=== PATIENT | female | born 1955 | race Caucasian/White ===

== ENCOUNTER 2021-01-06 02:45 | Emergency (ER) | payer BC, MEDICARE ==
[2021-01-06 03:14] VITALS: PULSE 71
[2021-01-06] MEDS ORDERED: Aspirin 81 MG Tab.Chew PO ONE (03:23)
[2021-01-06] MEDS ORDERED: Nitroglycerin 0.4 MG Tab.SL SL ONE ×2 (03:23→03:42)
[2021-01-06 03:28] VITALS: BP 205/81
--- NOTE | 2021-01-06 03:35 | EDM.PDOC ---
ED HPI GENERAL MEDICAL PROBLEM - General Chief Complaint: Chest Pain Stated Complaint: CHEST PAIN, 3RD ROUND OF ANTIBIOTICS Time Seen by Provider: 01/06/21 03:10 Source of Information: Reports: Patient, RN History Limitations: Reports: No Limitations - History of Present Illness INITIAL COMMENTS - FREE TEXT/NARRATIVE: ED with c/o sharp anterior chest pin /10 radiating thru to back, Hx GERD, woke with discomfort, tried Pepcid but didn't help. Remote hx "stress related CT 5 years ago. Pain worse tonight than with prior episode. no nausea or sweating. Notes SOB with exertion over past month. Has been sick with sinus symptoms since , Currently ending 3rd round of antibiotics. Finished course of prednisone. Primary sinus sx, right ethmoid. Scheduled for CT of sinus on Monday. Seeing GI specialist in January. Chest Pain Score (Numeric/FACES): 7 - Related Data Allergies Allergy/AdvReac Type Severity Reaction Status Date / Time bacitracin Allergy Unknown Verified 01/06/21 02:59 bacitracin zinc Allergy Unknown Verified 01/06/21 02:59 [From Neosporin ([id number])] codeine Allergy Unknown Verified 01/06/21 02:59 fluoxetine Allergy Unknown Verified 01/06/21 02:59 neomycin sulfate Allergy Unknown Verified 01/06/21 02:59 [From Neosporin ([id number])] Penicillins Allergy Unknown Verified 01/06/21 02:59 polymyxin B Allergy Unknown Verified 01/06/21 02:59 [From Neosporin ([id number])] environmental allergies Allergy Unknown Uncoded 01/06/21 02:59 Home Meds: Home Meds Albuterol Sulfate [Albuterol Sulfate HFA] 2 puff INH Q8H 01/06/21 [History] Aspirin [Aspirin EC] 81 mg PO DAILY 01/06/21 [History] Benzonatate [Tessalon Perle] 100 mg PO TID 01/06/21 [History] Desvenlafaxine [Desvenlafaxine ER] 100 mg PO DAILY 01/06/21 [History] Doxycycline Hyclate [Vibramycin] 100 mg PO BID 01/06/21 [History] Loratadine/Pseudoephedrine [Claritin-D 24 Hour Tablet] 1 tab PO DAILY 01/06/21 [History] Losartan [Cozaar] 50 mg PO BID 01/06/21 [History] Metoprolol Succinate 50 mg PO DAILY 01/06/21 [History] Mirabegron [Myrbetriq] 50 mg PO DAILY 01/06/21 [History] Montelukast Sodium [Singulair] 10 mg PO BEDTIME 01/06/21 [History] Omeprazole 20 mg PO ACBREAKFAST 01/06/21 [History] metFORMIN HCl [Metformin HCl ER] 1,000 mg PO BIDMEALS 01/06/21 [History] Past Medical History Cardiovascular History: Reports: High Cholesterol, Hypertension, CT Gastrointestinal History: Reports: GERD GALLERY OR [employer] History: Reports: Neurological History: Reports: Migraines, Vertigo Psychiatric History: Reports: Anxiety, Depression - Infectious Disease History Infectious Disease History: Reports: Chicken Pox, Measles, Mumps - Past Surgical History Musculoskeletal Surgical History: Reports: Shoulder Surgery Social & Family History - Tobacco Use Tobacco Use Status *Q: Never Tobacco User Second Hand Smoke Exposure: No - Caffeine Use Caffeine Use: Reports: Coffee - Recreational Drug Use Recreational Drug Use: No ED ROS GENERAL - Review of Systems Review Of Systems: Comprehensive ROS is negative, except as noted in HPI. ED EXAM, GENERAL - Physical Exam Exam: See Below Exam Limited By: No Limitations General Appearance: Alert, Anxious, Mild Distress, Obese Eye Exam: Bilateral Eye: EOMI Ears: Normal External Exam, Hearing Loss (mild) Nose: Normal Inspection Throat/Mouth: Normal Inspection, Normal Voice Head: Atraumatic, Sinus Tenderness (ritght ethmoid) Neck: Normal Inspection Respiratory/Chest: No Respiratory Distress, Lungs Clear, Normal Breath Sounds Cardiovascular: Normal Peripheral Pulses, Regular Rate, Rhythm, Other (rare PVC) GI/Abdominal: Normal Bowel Sounds, Soft, Tender (epigastric). No: Distended, Gu arding Back Exam: Normal Inspection, Full Range of Motion Extremities: Normal Inspection, Normal Range of Motion Neurological: Alert, Oriented, Normal Cognition Psychiatric: Anxious Skin Exam: Warm, Dry, Intact, Normal Color #1 Interpretation EKG Date: 01/06/21 Time: 02:55 Rate (Beats/Min): 68 [place]: Normal P-Wave: Present QRS: Normal ST-T: Normal Comparison: Change From Previous EKG Course - Vital Signs Last Recorded V/S: Last Vital Signs Temp 96.9 F 01/06/21 03:07 Pulse 71 01/06/21 03:07 Resp 17 01/06/21 03:07 BP 205/81 H 01/06/21 03:28 Pulse Ox 96 01/06/21 03:07 - Orders/Labs/Meds Labs: Laboratory Tests 01/06/21 01/06/21 01/06/21 Range/Units 03:42 03:42 03:42 WBC 9.6 (5.0-10.0) 10^3/uL RBC 3.99 L (4.2-5.4) 10^6/uL Hgb 11.0 L (12.0-16.0) g/dL Hct 33.4 L (37.0-47.0) % MCV 83.7 (80-100) fL MCH 27.6 (27.0-34.0) pg MCHC 32.9 L (33.0-35.0) g/dL Plt Count 284 (150-450) 10^3/uL Neut % (Auto) 72.6 (42.2-75.2) % Lymph % (Auto) 20.3 L (20.5-50.1) % [place] % (Auto) 6.9 (2-8) % Eos % (Auto) 0.1 L (1.0-3.0) % Baso % (Auto) 0.1 (0.0-1.0) % PT 11.7 (9.0-12.0) SEC INR 1.2 (0.9-1.2) D-Dimer, Quantitative 3290 H (0-400) ng/mL Sodium 141 (136-145) mmol/L Potassium 4.0 (3.5-5.1) mmol/L Chloride 104 (98-107) mmol/L Carbon Dioxide 26 (21-32) mmol/L Anion Gap 15.0 H (7-13) mEq/L BUN 24 H (7-18) mg/dL Creatinine 1.07 H (0.55-1.02) mg/dL Est Cr Clr Drug Dosing 40.35 mL/min Estimated GFR (MDRD) 51 BUN/Creatinine Ratio 22.4 (No establ ref range) Glucose 140 H (70-99) mg/dL Calcium 8.4 L (8.5-10.1) mg/dL Magnesium 1.4 L (1.8-2.4) mg/dL Total Bilirubin 0.3 (0.2-1.0) mg/dL AST 14 L (15-37) U/L ALT 27 (14-59) U/L Alkaline Phosphatase 59 (46-116) U/L Troponin I 0.195 H* (0.000-0.056) ng/mL B-Natriuretic Peptide 122 H (0-100) pg/ml Total Protein 6.2 L (6.4-8.2) g/dL Albumin 2.8 L (3.4-5.0) g/dL Globulin 3.4 Albumin/Globulin Ratio 0.82 Amylase 29 (25-115) U/L Lipase 79 (73-393) U/L SARS-CoV-2 RNA (SARAH) (NEGATIVE) 01/06/21 Range/Units 04:52 WBC (5.0-10.0) 10^3/uL RBC (4.2-5.4) 10^6/uL Hgb (12.0-16.0) g/dL Hct (37.0-47.0) % MCV (80-100) fL MCH (27.0-34.0) pg MCHC (33.0-35.0) g/dL Plt Count (150-450) 10^3/uL Neut % (Auto) (42.2-75.2) % Lymph % (Auto) (20.5-50.1) % [place] % (Auto) (2-8) % Eos % (Auto) (1.0-3.0) % Baso % (Auto) (0.0-1.0) % PT (9.0-12.0) SEC INR (0.9-1.2) D-Dimer, Quantitative (0-400) ng/mL Sodium (136-145) mmol/L Potassium (3.5-5.1) mmol/L Chloride (98-107) mmol/L Carbon Dioxide (21-32) mmol/L Anion Gap (7-13) mEq/L BUN (7-18) mg/dL Creatinine (0.55-1.02) mg/dL Est Cr Clr Drug Dosing mL/min Estimated GFR (MDRD) BUN/Creatinine Ratio (No establ ref range) Glucose (70-99) mg/dL Calcium (8.5-10.1) mg/dL Magnesium (1.8-2.4) mg/dL Total Bilirubin (0.2-1.0) mg/dL AST (15-37) U/L ALT (14-59) U/L Alkaline Phosphatase (46-116) U/L Troponin I (0.000-0.056) ng/mL B-Natriuretic Peptide (0-100) pg/ml Total Protein (6.4-8.2) g/dL Albumin (3.4-5.0) g/dL Globulin Albumin/Globulin Ratio Amylase (25-115) U/L Lipase (73-393) U/L SARS-CoV-2 RNA (SARAH) Negative (NEGATIVE) Meds: Medications Discontinued Medications Generic Name Dose Route Start Last Admin Trade Name Freq PRN Reason Stop Dose Admin Aspirin 324 mg 01/06/21 03:23 01/06/21 03:28 Aspirin 81 Mg Tab.Chew PO 01/06/21 03:24 324 mg ONETIME ONE Administration Heparin Sodium (Porcine) 5,000 units 01/06/21 05:44 01/06/21 06:01 Heparin Sodium 5,000 Units/Ml Vial IVPUSH 01/06/21 05:45 5,000 units .BOLUS ONE Administration Protocol Heparin Sodium/Sodium Chloride 25,000 units in 500 mls @ 34.291 mls/hr 01/06/21 05:45 01/06/21 06:01 Heparin 25,000 Units In 1/2 Ns 500 Ml IV 18 units/kg/hr TITRATE GIACOMO 34.291 mls/hr Administration Protocol 18 UNITS/KG/HR Iopamidol 100 ml 01/06/21 05:44 01/06/21 05:52 Iopamidol 755 Mg/Ml 100 Ml Bottle IVPUSH 01/06/21 05:45 75 ml ONETIME ONE Administration Morphine Sulfate 2 mg 01/06/21 06:05 01/06/21 06:11 Morphine 2 Mg/Ml Syringe IVPUSH 01/06/21 06:06 2 mg ONETIME ONE Administration Nitroglycerin 0.4 mg 01/06/21 03:23 01/06/21 03:28 Nitroglycerin 0.4 Mg Tab.Sl SL 01/06/21 03:24 0.4 mg ONETIME ONE Administration Nitroglycerin 0.4 mg 01/06/21 03:42 01/06/21 04:40 Nitroglycerin 0.4 Mg Tab.Sl SL 01/06/21 03:43 Not Given ONETIME ONE - Re-Assessments/Exams Free Text/Narrative Re-Assessment/Exam: 01/06/21 03:59 States pain improved to where has been constantly for past couple of weeks, rating 3/10. BP improved. Departure - Departure Time of Disposition: 06:18 Disposition: DC/Tfer to Acute Hospital 02 Reason for Transfer *Q: Other Condition: Undetermined Clinical Impression: Bilateral pulmonary embolism, Mass of right lung, Elevated troponin Hypertension Qualifiers: Hypertension type: unspecified Qualified Code(s): I10 - Essential (primary) hypertension Forms: ED Department Discharge Sepsis Event Note (ED) - Evaluation Sepsis Screening Result: No Definite Risk
--- NOTE | 2021-01-06 04:47 | CR ---
PROCEDURE INFORMATION: Exam: XR Chest Exam date and time: 01/06/2021 3:51 AM Age: 65 years old Clinical indication: Shortness of breath; Additional info: Chest pain , SOB with exertion TECHNIQUE: Imaging protocol: XR of the chest. Views: 1 view. COMPARISON: CR Chest 2V 08/31/2015 6:24 PM FINDINGS: Lungs: Again seen is mild peribronchial cuffing and mildly prominent central lung markings in both lungs. No new focal airspace opacities. Pleural spaces: Unremarkable. No pleural effusion. No pneumothorax. Heart/Mediastinum: Unremarkable. No cardiomegaly. Bones/joints: Status post right shoulder arthroplasty. IMPRESSION: Again seen is mild peribronchial cuffing and mildly prominent central lung markings in both lungs which is nonspecific but may be seen with bronchitis or asthma. No consolidation.
[2021-01-06] MEDS ORDERED: Iopamidol 612 MG/ML 100 ML Bottle IVPUSH ONE (05:40)
[2021-01-06] MEDS ORDERED: Iopamidol 755 Mg/ML 100 ML Bottle IVPUSH ONE (05:44)
[2021-01-06] MEDS ORDERED: Heparin Sodium 5,000 Units/ML Vial IVPUSH ONE (05:44)
[2021-01-06] MEDS ORDERED: Heparin Sodium/0.45% NaCl 25,000 UNITS/500 ML BAG IV SCH (05:45)
--- NOTE | 2021-01-06 05:49 | CT ---
PROCEDURE INFORMATION: Exam: CT Chest With Contrast; Diagnostic Exam date and time: 01/06/2021 5:24 AM Age: 65 years old Clinical indication: Pain; Other: Chest; Additional info: Chest pain , ddimer 3290 TECHNIQUE: Imaging protocol: Diagnostic computed tomography of the chest with contrast. Radiation optimization: All CT scans at this facility use at least one of these dose optimization techniques: automated exposure control; mA and/or kV adjustment per patient size (includes targeted exams where dose is matched to clinical indication); or iterative reconstruction. Contrast material: ISOVUE 300; Contrast volume: 75 ml; Contrast route: INTRAVENOUS (IV); COMPARISON: CR Chest 1V Frontal 01/06/2021 3:51 AM FINDINGS: Lungs: Spiculated mass in the posterior right lower lobe measuring 2.2 x 1.4 cm on image 4:43. There is mild thickening of the overlying pleura. Mild interlobular septal thickening in the right lung, greatest in the right upper lobe. Mild bronchial wall thickening in the right lung. Pleural spaces: Trace right pleural effusion. No left pleural effusion. No pneumothorax. Heart: Mild left atrial and ventricular enlargement. Mild coronary artery calcified atherosclerosis. No pericardial effusion. Pulmonary arteries: No pulmonary embolism in the main or right or left central pulmonary arteries. Small burden of acute pulmonary emboli in both lungs, for example within lobar and segmental and subsegmental pulmonary arteries in the right lower lobe on images 4:46-51 and in the left lower lobe on images 4:51-57. Aorta: Mild calcified atherosclerosis of the thoracic aorta. No thoracic aortic aneurysm or evidence of acute aortic pathology. Veins: There is retrograde contrast opacification of the IVC and hepatic veins suggesting right heart dysfunction. Lymph nodes: Mild mediastinal and bilateral hilar lymphadenopathy. Bones/joints: Status post right shoulder arthroplasty. Left glenohumeral degenerative arthritis. Multilevel chronic degenerative changes of the thoracic spine. Soft tissues: Unremarkable. IMPRESSION: 1. Small burden of acute pulmonary emboli in both lungs. No right heart strain. 2. Spiculated mass in the posterior right lower lobe measuring 2.2 x 1.4 cm, concerning for neoplasm. Highly suspicious nodule(s). Consider non-emergent PET/CT, or tissue sampling. (Reference: Karol) 3. Mild mediastinal and bilateral hilar lymphadenopathy, nonspecific. Metastases not excluded. 4. Mild interlobular septal thickening in the right lung, suggesting asymmetric interstitial edema. REFERENCES: Karol Salomon, et al. Guidelines for Management of Incidental Pulmonary Nodules Detected on CT Images: From the Fleischner Society 2017. Radiology. 2017;284(1):228-243.
[2021-01-06] MEDS ORDERED: Morphine 2 MG/ML SYRINGE IVPUSH ONE (06:05)
== END 2021-01-06 06:55 ==
LOC: DL.ED 02:45
DX: I26.99 Other pulmonary embolism without acute cor pulmonale (principal); R79.89 Other specified abnormal findings of blood chemistry; R91.8 Other nonspecific abnormal finding of lung field; I10 Essential (primary) hypertension; I25.2 Old myocardial infarction; K21.9 Gastro-esophageal reflux disease without esophagitis; Z20.822 Contact with and (suspected) exposure to COVID-19; Z88.1 Allergy status to other antibiotic agents; Z88.5 Allergy status to narcotic agent; Z88.8 Allergy status to other drugs, medicaments and biological substances; Z88.0 Allergy status to penicillin; Z91.048 Other nonmedicinal substance allergy status; Z79.82 Long term (current) use of aspirin
CPT/HCPCS: 36415; 71045; 71260; 80053; 82150; 83690; 83735; 83880; 84484; 85025; 85379; 85610; 93005; 96365; 96375; 99285; A9270; J1644; J2270; Q9967; U0002